=== PATIENT | male | born 1975 | race African-American/Black ===

== ENCOUNTER 2016-12-20 13:10 | Emergency (ER) | payer MEDICAID, OTHER ==
[~2016-12-20] VITALS: Ht 188 cm; Wt 130.0 kg
[2016-12-20 13:27] VITALS: BP 128/82
== END 2016-12-20 15:10 | disposition home or self-care (01) ==
LOC: ER 14:15
DX: S90.01XA Contusion of right ankle, initial encounter (principal); F17.210 Nicotine dependence, cigarettes, uncomplicated; F12.10 Cannabis abuse, uncomplicated; X50.1XXA Overexertion from prolonged static or awkward postures, initial encounter; Y93.67 Activity, basketball; Y92.39 Other specified sports and athletic area as the place of occurrence of the external cause
CPT/HCPCS: 99281